=== PATIENT | male | born 1970 | race Caucasian/White ===

== ENCOUNTER → 2021-01-17 14:52 | Outpatient (CLI) | payer BC, SELFPAY ==
--- NOTE | 2021-02-06 08:28 | PM.CARDMON.1 ---
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 Referral & Results Date Patient Seen: 01/17/21 Requesting provider: Ana Maria Mcadams Indication: Palpitations Duration of monitoring (days): 7 Diary information: Therefore patient triggered events and 1 patient diary entry Patient diary entry was associated with sinus rhythm only Patient triggered events were associated with (within 45 seconds) sinus rhythm and PACs Data: Minimum heart rate identified was 46 beats per minute at 00:51 on 01/22/2021 Maximum sinus heart rate was 144 beats per minute at 17:59 on 01/22/2021 Maximum overall heart rate was 164 beats per minute at 05:57 on 01/19/2021 during a 5 be run of SVT Less than 1% of identified beats rather ventricular supraventricular ectopic in origin Patient had 2 runs of SVT the fastest being the 5 be run noted above the longest also lasting 5 beats but at a rate of 105 beats per minute (which suggest atrial tachycardia rather than true SVT) Impression: 7 day surveillance system monitor which shows rare very brief runs of SVT as well as rare PVCs and PACs. Based on patient events it is possible that PACs are source of patient's sense of palpitations although patient also reported symptoms during times when no dysrhythmias were present. Clinical correlation reported
== END ==
PROVIDERS: PCP Student in an Organized Health Care Education/Training Program; Referring Provider Student in an Organized Health Care Education/Training Program; Visit Provider Student in an Organized Health Care Education/Training Program
DX: R00.2 Palpitations (principal)
CPT/HCPCS: 93242; 93244

== ENCOUNTER → 2021-03-29 15:22 | Outpatient (CLI) | payer BC, SELFPAY ==
[2021-03-29 15:58] LABS: COVID19 -Nasal RAPID Negative (Negative)
== END ==
PROVIDERS: PCP Student in an Organized Health Care Education/Training Program; Visit Provider Specialist
DX: Z20.822 Contact with and (suspected) exposure to COVID-19 (principal)
CPT/HCPCS: 87635; C9803

== ENCOUNTER → 2021-03-30 08:02 | Day surgery (SDC) | payer BC, SELFPAY ==
[2021-03-30 08:30] VITALS: BP 129/81; PULSE 15; RESP 95; TEMP 36.4; BMI 30.7
[2021-03-30] MEDS: LACTATED RINGERS 1,000 ML 200 ML IV (08:37)
--- NOTE | 2021-03-30 09:12 | PM.HP.1 ---
History of Present Illness History of Present Illness Date Patient Seen: 03/30/21 Time Patient Seen: 09:12 Chief complaint: SCREENING COLONOSCOPY Narrative: The patient is a gentleman here for screening colonoscopy. This is his 1st exam. He has turned 50. No family history of colon cancer. Patient History Medical History GERD (gastroesophageal reflux disease) Hyperlipidemia Surgical History S/P left knee arthroscopy Family & Social History Social History: household members spouse Tobacco & Substance use: Smoking Status Never smoker alcohol intake current alcohol intake frequency holiday/special occasion Substance Use Type does not use Meds Home Medications and Allergies Home Medications Medication Instructions Recorded Confirmed Type simvastatin 20 mg PO QDAY #0 02/06/18 03/30/21 History cholecalciferol (vitamin D3) 50 mcg PO DAILY 03/30/21 03/30/21 History [Vitamin D3] red yeast rice 1,200 mg PO DAILY 03/30/21 03/30/21 History Allergies Allergy/AdvReac Type Severity Reaction Status Date / Time No Known Drug Allergies Allergy Verified 03/30/21 08:17 Review of Systems Review of Systems ROS: Yes All systems reviewed with the patient and are negative except as otherwise documented Exam Vital Signs (past 8 hours): - 03/30/21 08:30 Temperature 97.5 F L Pulse Rate 15 L Respiratory Rate 95 H Blood Pressure 129/81 Oxygen Delivery Method Room Air Narrative Exam Narrative: Pleasant cooperative patient no apparent distress. Lungs are clear to auscultation. No rales or rhonchi. Heart regular rate and rhythm no murmur gallop. Abdomen is soft nontender without mass. No obvious hernias. Patient is alert and oriented x3. Assessment & Plan Assessment & Plan narrative: The patient for a screening colonoscopy. I have discussed the procedure with them. Risks of bleeding, perforation which would necessitate major operation, failure to find remove all lesions, the potential tattoo were all discussed. All questions were answered. They wished to proceed.
--- NOTE | 2021-03-30 09:13 | PM.PREOP ---
Pre-operative Note COVID-19 COVID-19 status: Negative Result date/Date tested (Pos, Neg/Pending): 03/30/21 Interval Note History & Physical reviewed/Exam performed by Physician: Yes Changes to H&P: No ASA Class (for procedural sedation): I
== END | disposition home or self-care (01) ==
PROVIDERS: PCP Student in an Organized Health Care Education/Training Program; Referring Provider Student in an Organized Health Care Education/Training Program; Visit Provider Specialist
DX: Z12.11 Encounter for screening for malignant neoplasm of colon (principal); Z53.09 Procedure and treatment not carried out because of other contraindication
CPT/HCPCS: 45378

== ENCOUNTER 2021-03-31 06:57 | Day surgery (SDC) | payer BC, SELFPAY ==
--- NOTE | 2021-03-31 | PATH_ITS ---
[facility] Accession Number: [id number] . 01 Material submitted: . PART A: cecum - CECAL POLYP PART B: colon - POLYP @45CM . 02 Diagnosis: A. Cecum, Polyp, Biopsy: Tubular adenoma. . B. Colon, Polyp at 45 cm, Biopsy: Tubular adenoma in one of two fragments. Hyperplastic polyp with features of mucosal prolapse in one fragment. MRV 04/06/2021 1052 Local . 02 Electronically signed: . Elisa James MD, Pathologist NPI- [id number] . 01 Gross description: . Part A: CECAL POLYP: Received in formalin are 2 fragment(s) of soto, soft tissue measuring 0.2 x 0.2 x 0.2 cm to 0.3 x 0.3 x 0.3 cm submitted entirely in 1 cassette(s) Part B: POLYP @45CM: Received in formalin are 2 fragment(s) of soto, soft tissue measuring 0.2 x 0.2 x 0.2 cm to 0.3 x 0.3 x 0.3 cm submitted entirely in 1 cassette(s) /CYNTHIA 04/03/2021 1938 Local . 02 Pathologist provided ICD-10: D12.0, D12.6 . 02 CPT . 430916, 192832 Performed at: [address] [facility] [address] [facility], [place], [place] [id number] MD Waqas Cullen MD Phone: [phone] Performed at: 02 [facility] [address] [place], [place] [id number] MD Elisa James MD Phone: [phone]
[2021-03-31 07:17] VITALS: BP 141/94; PULSE 84; RESP 16; TEMP 36.4; O2SAT 95; BMI 29.9
[2021-03-31] MEDS: LACTATED RINGERS 1,000 ML 100 ML IV (07:17)
--- NOTE | 2021-03-31 07:26 | PM.PREOP ---
Pre-operative Note COVID-19 COVID-19 status: Negative Result date/Date tested (Pos, Neg/Pending): 03/29/21 Interval Note History & Physical reviewed/Exam performed by Physician: Yes Changes to H&P: No ASA Class (for procedural sedation): I
[2021-03-31] MEDS: MIDAZOLAM 5 MG/5 ML VIAL IV (08:10)
[2021-03-31] MEDS: fentaNYL 250 MCG/5 ML INJ IV (08:10)
--- NOTE | 2021-03-31 08:30 | PM.OP.ENDO ---
Operative Date/Time/Diagnoses Date of procedure: 03/31/21 Time of procedure: 08:30 Pre-op diagnosis: screening Post-op diagnosis: same (Three small polyps.) Procedure & Clinicians Study performed: Colonoscopy with cold biopsy Same procedure as scheduled: Yes Indications: Screening for colon cancer Surgeon: Hemanth Saldana Procedure Notes SCOAP/Timeout: Performed Procedure in detail: The patient was placed in the left lateral decubitus position and underwent IV sedation directed by the surgeon consisting of fentanyl and Versed. Digital exam was unremarkable. His prostate is flat.. The scope was inserted and advanced through the rectum into the sigmoid, descending, transverse, and ascending colon. No lesions were seen on the way in.. The cecum was reached identified by the ileocecal valve and the appendiceal opening. There was a small polyp like lesion immediately adjacent to the ileocecal valve which I biopsied and removed. The scope was gradually brought out. Two additional Polyps were found at 45 cm from the anal verge. These were removed with biopsy forceps. They were quite small.. The scope ultimately was retroflexed in the rectum. The appearance was remarkable for small internal hemorrhoids without ulceration.. The scope was removed and the patient tolerated the procedure well. The prep was very good. Scope withdrawal time: 7 minutes(11 total) Sedation minutes: 21 Specimen(s): other (Three Polyps in 2 containers) Complications: none Post-procedure Recommendations: Colonscopy in 5 years (Due to the presence of polyps.) Follow up: as needed Disposition: PACU
[2021-03-31 08:32] VITALS: BP 127/83; PULSE 68; RESP 13; TEMP 36.6; O2SAT 95
[2021-03-31 08:37] VITALS: BP 122/76; PULSE 69; RESP 13; O2SAT 94
[2021-03-31 08:42] VITALS: BP 130/78; PULSE 81; RESP 18; O2SAT 94
[2021-03-31 08:47] VITALS: BP 134/99; PULSE 81; RESP 19; TEMP 36.7; O2SAT 95
[2021-03-31 08:48] VITALS: BP 129/94; PULSE 95; RESP 14; TEMP 36.7; O2SAT 95
== END 2021-03-31 08:54 | disposition home or self-care (01) ==
PROVIDERS: PCP Student in an Organized Health Care Education/Training Program; Referring Provider Student in an Organized Health Care Education/Training Program; Visit Provider Specialist
PROC: 0DJD8ZZ Inspection of Lower Intestinal Tract, Via Natural or Artificial Opening Endoscopic (ICD-10-PCS; CPT 45378; principal; 2021-03-31 08:30)
DX: D12.0 Benign neoplasm of cecum (principal); K21.9 Gastro-esophageal reflux disease without esophagitis; E78.5 Hyperlipidemia, unspecified; D12.6 Benign neoplasm of colon, unspecified; K64.0 First degree hemorrhoids; Z12.11 Encounter for screening for malignant neoplasm of colon
CPT/HCPCS: 45380; 99152; J2250; J3010

== ENCOUNTER → 2022-01-12 08:21 | Outpatient (CLI) | payer BC, SELFPAY ==
--- NOTE | 2022-01-12 08:28 | DI.RAD.S_ITS ---
PROCEDURE: XR CHEST 2V INDICATIONS: PERSISTANT COUGH TECHNIQUE: 2 views of the chest were acquired. COMPARISON: None. FINDINGS: Surgical changes and devices: None. Lungs and pleura: Right middle lobe pulmonary infiltrate. Remainder of the lungs and pleural spaces are clear. No pneumothorax. Mediastinum: Mediastinal contours are normal. Heart size is normal. Bones and chest wall: No suspicious bony abnormalities. Soft tissues appear unremarkable. IMPRESSION: Right middle lobe pulmonary infiltrate consistent with pneumonia. Approved by: Ricky Cody M.D. on 01/12/2022 at 9:03
[2022-01-12 11:13] LABS: Add Manual Diff / Slide Review NO; Basophils Absolute Auto 0 /uL (0-100); Basophils Percent Auto 0.3 % (0-2); Eosinophils Absolute Auto 200 /uL (0-450); Eosinophils Percent Auto 2.6 % (2-4); Hematocrit 46.1 % (41-53); Hemoglobin 15.7 g/dL (13.5-17.5); Lymphocytes Absolute Auto 2100 /uL (1100-4500); Lymphocytes Percent Auto 26.9 % (25-40); Mean Corpuscular Hemoglobin 28.7 PG (26-34); Mean Corpuscular Volume 84.5 fL (80-100); Monocytes Absolute Auto 800 /uL (0-900); Neutrophils Absolute Auto 4700 /uL (1500-7000); Neutrophils Percent Auto 60.2 % (50-75); Platelet Count 252 X10^3/uL (150-400); Red Blood Cell Count 5.46 X10^6/uL (4.5-5.9); Red Cell Distribution Width 13.2 % (11.6-14.8); White Blood Cell Count 7.9 X10^3/uL (4.5-11.0)
[2022-01-12 11:32] LABS: Alanine Aminotransferase 37 IU/L (<50); Albumin 4.6 g/dL (3.5-5.0); Albumin Globulin Ratio 1.6 (1.0-2.8); Alkaline Phosphatase 74 U/L (38-126); Aspartate Aminotransferase 29 IU/L (17-59); BUN Creatinine Ratio 19.8 (6-22); Bilirubin Total 0.7 mg/dL (0.2-1.3); Blood Urea Nitrogen 17 mg/dL (9-20); Calcium 9.8 mg/dL (8.4-10.2); Carbon Dioxide 29 mmol/L (22-32); Chloride 104 mmol/L (98-107); Cholesterol 162 mg/dL (140-199); Estimated Glomerular Filt Rate > 60.0 mL/min (>60); Globulin 2.9 g/dL (1.7-4.1); Glucose 95 mg/dL (70-100); HDL Cholesterol 46 mg/dL (40-60); HEMOLYSIS 16 (0-50); LDL Cholesterol Calculated 91 mg/dL (<100); Potassium 4.3 mmol/L (3.4-5.1); Sodium 138 mmol/L (137-145); Total Protein 7.5 g/dL (6.3-8.2); Triglycerides 123 mg/dL (35-150)
[2022-01-14 16:34] LABS: HIV 1 & 2 Ab/Ag 4th Gen Combo NEGATIVE (NEGATIVE)
[2022-01-14 16:44] LABS: Hep C Virus Ab w/Reflex Quant NEGATIVE s/c (NEGATIVE)
== END ==
PROVIDERS: PCP Student in an Organized Health Care Education/Training Program; Referring Provider Student in an Organized Health Care Education/Training Program; Visit Provider Student in an Organized Health Care Education/Training Program
DX: Z11.4 Encounter for screening for human immunodeficiency virus [HIV] (principal); Z11.59 Encounter for screening for other viral diseases; Z13.220 Encounter for screening for lipoid disorders; Z13.228 Encounter for screening for other metabolic disorders; R05.3 Chronic cough
CPT/HCPCS: 36415; 71046; 80053; 80061; 85025; 86803; 87389